=== PATIENT | male | born 1995 | race Caucasian/White ===

== ENCOUNTER 2018-08-21 13:04 | Emergency (ER) | payer BC, SELFPAY ==
[2018-08-21 13:05] VITALS: BP 137/68; PULSE 88; RESP 16; TEMP 36.8; O2SAT 97; BMI 28.5
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
[2018-08-21 14:19] LABS: Absolute Lymphocyte Count 1.48 X10^3/ul (0.83-4.51); Absolute Neutrophil Count 6.2 X10^3/uL (2.0-7.7); Basophil# 0.02 X10^3/uL; Basophil% 0.2 % (0-1); Eosinophil# 0.26 X10^3/uL; Hematocrit 44.6 % (40-54); Hemoglobin 15.7 g/dl (13.0-16.5); Lymphocyte # 1.48 X10^3/ul (4.0); Lymphocyte % 17.1 % (19-41); Mean Corp Hgb Conc 35.2 g/gl (32-36); Mean Corpuscular Hgb 30.2 pg (27.0-32.0); Mean Corpuscular Volume 85.8 fL (80-94); Mean Platelet Vol. 10.2 fl (6.2-12.0); Monocyte# 0.75 X10^3/uL; Monocyte% 8.7 % (0-10); Neutrophil # 6.15 X10^3/uL (2.7-7.7); Neutrophil % 70.9 % (47-70); POSITIVE COUNT NO; POSITIVE DIFFERENTIAL NO; POSITIVE MORPHOLOGY NO; Platelet Count 224 K/mm3 (150-450); RBC Distribution Width CV 11.6 % (11.6-14.6); RBC Distribution Width SD 36.2 fl (35.1-43.9); White Blood Count 8.7 K/mm3 (4.4-11.0)
[2018-08-21 14:30] LABS: Anion Gap 5 (5-15); BUN 14 mg/dL (7-18); BUN/Creat Ratio 12.4 RATIO (10-20); Chloride 103 mmol/L (98-107); Creatinine, Serum 1.13 mg/dL (0.70-1.30); EST Glomerular Filtration Rate 87 mL/min (>60); Est Glom Filt Rate - Afr Amer 105 mL/min (>60); Glucose 82 mg/dL (74-106); Potassium 4.2 mmol/L (3.5-5.1); Sodium Level 138 mmol/L (136-145)
[2018-08-21 15:13] VITALS: BP 127/75; PULSE 74; RESP 14; O2SAT 100
--- NOTE | 2018-08-21 15:15 | ED.RN ---
PARENTS STATE PT HAS BEEN USING SWEAR WORDS AND ANGRY/ABUSIVE LANGUAGE. PT IS HARDER TO WAKE UP. STABLE VITAL SIGNS.
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
[2018-08-21 16:33] VITALS: BP 133/72; PULSE 60; RESP 14; O2SAT 100
[2018-08-21 16:54] VITALS: BP 133/76; PULSE 60; RESP 14; O2SAT 97
== END 2018-08-21 16:55 | disposition short-term general hospital (02) ==
PROVIDERS: Emergency Provider Emergency Medicine; Family Provider Family Medicine; PCP Family Medicine
DX: S06.9X9A Unspecified intracranial injury with loss of consciousness of unspecified duration, initial encounter (principal); S00.31XA Abrasion of nose, initial encounter; R40.2410 Glasgow coma scale score 13-15, unspecified time; V89.2XXA Person injured in unspecified motor-vehicle accident, traffic, initial encounter; Y93.9 Activity, unspecified; Y92.9 Unspecified place or not applicable; M25.522 Pain in left elbow
CPT/HCPCS: 70450; 71045; 72125; 72170; 73080; 80048; 80320; 85025; 99285; A4216; G0480

== ENCOUNTER 2018-08-28 12:38 | Emergency (ER) | payer BC, SELFPAY ==
[2018-08-28 12:39] VITALS: BP 139/85; PULSE 104; RESP 16; TEMP 36.8; O2SAT 95; BMI 27.7
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
[2018-08-28 13:48] LABS: Anion Gap 8 (5-15); BUN 12 mg/dL (7-18); BUN/Creat Ratio 13.2 RATIO (10-20); Calcium,Total 8.6 mg/dL (8.5-10.1); Chloride 106 mmol/L (98-107); Creatinine, Serum 0.91 mg/dL (0.70-1.30); EST Glomerular Filtration Rate 111 mL/min (>60); Est Glom Filt Rate - Afr Amer 135 mL/min (>60); Estimated Creatinine Clearance 145.12 ml/min; Glucose 91 mg/dL (74-106); Potassium 3.4 mmol/L (3.5-5.1); Sodium Level 142 mmol/L (136-145)
[2018-08-28 13:50] LABS: Absolute Lymphocyte Count 2.27 X10^3/ul (0.83-4.51); Absolute Neutrophil Count 2.3 X10^3/uL (2.0-7.7); Basophil# 0.02 X10^3/uL; Basophil% 0.4 % (0-1); Eosinophil# 0.31 X10^3/uL; Eosinophils% 5.6 % (0-5); Hematocrit 42.6 % (40-54); Hemoglobin 14.6 g/dl (13.0-16.5); Lymphocyte # 2.27 X10^3/ul (4.0); Lymphocyte % 41.3 % (19-41); Mean Corp Hgb Conc 34.3 g/gl (32-36); Mean Corpuscular Hgb 29.3 pg (27.0-32.0); Mean Corpuscular Volume 85.5 fL (80-94); Mean Platelet Vol. 10.2 fl (6.2-12.0); Monocyte# 0.58 X10^3/uL; Monocyte% 10.5 % (0-10); Neutrophil # 2.31 X10^3/uL (2.7-7.7); Platelet Count 227 K/mm3 (150-450); RBC Distribution Width CV 11.8 % (11.6-14.6); RBC Distribution Width SD 36.6 fl (35.1-43.9); Red Blood Count 4.98 M/mm3 (4.6-6.2); White Blood Count 5.5 K/mm3 (4.4-11.0)
[2018-08-28 13:52] LABS: POSITIVE COUNT NO; POSITIVE DIFFERENTIAL NO; POSITIVE MORPHOLOGY NO
[2018-08-28 14:32] LABS: Alcohol, Blood (Medical)-Serum < 3.0 mg/dL
[2018-08-28 14:55] VITALS: BP 128/83; PULSE 84; RESP 18; O2SAT 100
[2018-08-28 15:17] LABS: Amphetamine Urine VISTA POSITIVE (<1000 ng/mL); Barbiturate Urine VISTA NEGATIVE (< 200 ng/mL); Benzodiazepine Urine VISTA POSITIVE (< 200 ng/mL); Cocaine Urine VISTA POSITIVE (< 300 ng/mL); Ecstacy Urine VISTA POSITIVE (< 500 ng/mL); Methadone Urine VISTA NEGATIVE (< 300 ng/mL); PCP Urine VISTA NEGATIVE (< 25 ng/mL); THC Urine VISTA POSITIVE (< 50 ng/mL); Vista UDS pH Range 6
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
--- NOTE | 2018-08-28 15:38 | ED.DEP ---
ED Disposition - Plan for ED Patient: Chief Complaint: Head Injury Instructions: ED Concussion, ED Drug Abuse General, ED Psychosis Referrals: Russ Patterson DO [Primary Care Provider] - Counseling,Center [GROUP OF PHYSICIANS] - As Needed [facility] [STAFF PHYSICIAN] - As Needed
== END 2018-08-28 15:50 | disposition home or self-care (01) ==
PROVIDERS: Emergency Provider Emergency Medicine; Family Provider Family Medicine; PCP Family Medicine
DX: F19.959 Other psychoactive substance use, unspecified with psychoactive substance-induced psychotic disorder, unspecified (principal); S09.90XA Unspecified injury of head, initial encounter; V47.9XXA Unspecified car occupant injured in collision with fixed or stationary object in traffic accident, initial encounter; Y93.9 Activity, unspecified; Y92.9 Unspecified place or not applicable; Y99.9 Unspecified external cause status
CPT/HCPCS: 70450; 80048; 80307; 80320; 85025; 99283; A4216; G0480

== ENCOUNTER 2018-12-06 22:56 | Emergency (ER) | payer OTHER, BC, SELFPAY ==
[2018-12-06 22:57] VITALS: BP 143/70; PULSE 84; RESP 18; TEMP 37.1; O2SAT 100; BMI 27.0
--- NOTE | 2018-12-06 23:11 | ED.RN ---
per records [facility] drug testing is by request only. Per patient no request was made. Lanie Gonzalez was called at [phone] but no answer.
--- NOTE | 2018-12-07 00:16 | DCINST.ED_ITS ---
ED Disposition - Plan for ED Patient: Instructions: ED Laceration Hand Referrals: Russ Patterson DO [Primary Care Provider] - [facility] [GROUP OF PHYSICIANS] -
--- NOTE | 2018-12-07 00:16 | ED.DEP ---
ED Disposition - Plan for ED Patient: Instructions: ED Laceration Hand Referrals: Russ Patterson DO [Primary Care Provider] - [facility] [GROUP OF PHYSICIANS] -
--- NOTE | 2018-12-07 00:19 | ED.VISSUMM ---
- ER Visit Summary Date of Service: 12/07/18 Chief Complaint: Right index finger laceration History of Present Illness: The patient is a 23 M presenting with right index finger laceration. Patient states he was at work and accidentally cut his finger on a piece of scrap metal. This occurred 3 hours prior to arrival. He does not recall his last tetanus immunization. No other injuries. Physical Examination: Vitals are stable. Patient is afebrile. Alert no acute distress. HEENT exam is unremarkable. Neck is supple. Lungs are clear and equal bilaterally. Heart is regular rate and rhythm. Extremities 1 cm laceration overlying MCP, right index finger. Tendon function intact. Normal cap refill. Skin is warm and dry. No focal neurologic deficit. Remainder of exam is unremarkable. Emergency Department Course and Treatment: Patient was given tetanus IM. Wound was copiously irrigated. Anesthetized with lidocaine. 2, 5-0 simple sutures were placed. Patient tolerated this well. Advised wound care instructions. Advised to follow up with corporate care. Advised return to ED if worsening complaints. Disposition: Discharge home Impression: Right index finger laceration, laceration repair This note was generated with [employer] dictation software. It may contain incorrect words, spelling, and punctuation that were not noted in review of the chart prior to signing ED Disposition - Plan for ED Patient: Instructions: ED Laceration Hand Referrals: ,[facility] [GROUP OF PHYSICIANS] - Russ Patterson DO [Primary Care Provider] -
[2018-12-07] MEDS: Diphth,Pertuss(Acell),Tet Vac 0.5 ML Vial IM (00:34)
== END 2018-12-07 00:44 | disposition home or self-care (01) ==
LOC: ED 12-07 00:02
PROVIDERS: Emergency Provider Emergency Medicine; Family Provider Family Medicine; PCP Family Medicine
DX: S61.210A Laceration without foreign body of right index finger without damage to nail, initial encounter (principal); W26.8XXA Contact with other sharp object(s), not elsewhere classified, initial encounter
CPT/HCPCS: 12001; 90715; 99283

== ENCOUNTER 2020-02-04 15:21 | Emergency (ER) | payer OTHER, SELFPAY ==
[2018-12-12 14:40] VITALS: BMI 27.0
[2020-02-04 15:24] VITALS: BP 162/96; PULSE 126; RESP 18; TEMP 36.7; O2SAT 98; BMI 29.0
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
[2020-02-04 16:59] VITALS: RESP 14
[2020-02-04] MEDS: Naproxen 500 MG Tablet PO (16:59)
== END 2020-02-04 17:03 | disposition home or self-care (01) ==
PROVIDERS: Emergency Provider Physician Assistant Medical; PCP Family Medicine
DX: S81.811A Laceration without foreign body, right lower leg, initial encounter (principal); W22.8XXA Striking against or struck by other objects, initial encounter; Y93.53 Activity, golf; Y92.9 Unspecified place or not applicable; Y99.8 Other external cause status; F17.200 Nicotine dependence, unspecified, uncomplicated
CPT/HCPCS: 12002; 99284

== ENCOUNTER 2020-03-12 09:30 | Outpatient (RCR) | payer SELFPAY ==
[2020-02-27 11:47] VITALS: BP 124/70; PULSE 78; RESP 18; TEMP 36.8; BMI 29.0
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
[2020-03-05 10:32] VITALS: BP 130/85; PULSE 85; RESP 20; TEMP 36.8; BMI 29.0
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
[2020-03-05 20:15] LABS: M R Staph aureus DNA By PCR Negative (Negative); Probe Check PASS; Staph aureus DNA By PCR NEGATIVE (Negative)
[2020-03-12 09:35] VITALS: BP 136/84; PULSE 61; RESP 16; TEMP 36.2; BMI 29.0
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
== END 2020-03-22 23:59 ==
LOC: WC 09:30
PROVIDERS: PCP Family Medicine; Referring Provider Surgery; Visit Provider Surgery
DX: S81.831A Puncture wound without foreign body, right lower leg, initial encounter (principal); V29.9XXA Motorcycle rider (driver) (passenger) injured in unspecified traffic accident, initial encounter; Y93.89 Activity, other specified; Y92.9 Unspecified place or not applicable; T81.33XA Disruption of traumatic injury wound repair, initial encounter
CPT/HCPCS: 11042; 73701; 87070; 87075; 87077; 87186; 87205; 87640; 99213; Q9967; G0463

== ENCOUNTER 2020-04-16 11:30 | Outpatient (RCR) | payer SELFPAY ==
[2020-03-23 00:39] VITALS: BP 136/84; PULSE 61; RESP 16; TEMP 36.2
[2020-03-26 10:09] VITALS: BP 126/75; PULSE 74; RESP 16; TEMP 36.6; BMI 29.0
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
[2020-04-02 11:06] VITALS: BP 136/70; PULSE 70; RESP 16; TEMP 37.1; BMI 29.0
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
[2020-04-16 11:16] VITALS: BP 120/67; PULSE 76; RESP 16; TEMP 35.8; BMI 29.0
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
== END 2020-04-22 23:59 ==
LOC: WC 11:30
PROVIDERS: PCP Family Medicine; Referring Provider Surgery; Visit Provider Surgery
DX: S81.831A Puncture wound without foreign body, right lower leg, initial encounter (principal); V29.9XXA Motorcycle rider (driver) (passenger) injured in unspecified traffic accident, initial encounter; Y93.89 Activity, other specified; Y92.9 Unspecified place or not applicable; T81.33XA Disruption of traumatic injury wound repair, initial encounter; Z86.19 Personal history of other infectious and parasitic diseases
CPT/HCPCS: 11042